=== PATIENT | female | born 1975 | race African-American/Black ===

== ENCOUNTER 2017-10-16 04:59 | Day surgery (SDC) | payer BC, OTHER ==
[2017-10-15 16:33] VITALS: BMI 20.5
[2017-10-16] MEDS ORDERED: PROPOFOL 20 ML ONE ×2 (12:39)
[2017-10-16] MEDS ORDERED: MIDAZOLAM HCL 2 MG/2 ML SINGLE DOSE VIAL ONE (12:39)
[2017-10-16] MEDS ORDERED: ceFAZolin SODIUM 1 GM VIAL ONE (12:44)
[2017-10-16] MEDS ORDERED: IODINE/POTASSIUM IODIDE 5%/10% 14 ML BOTTLE NR ONE (13:05)
[2017-10-16] MEDS ORDERED: KETOROLAC TROMETHAMINE 30 MG/1 ML VIAL IVPUSH ONE (13:38)
[2017-10-16] MEDS ORDERED: ONDANSETRON 4 MG/2 ML VIAL IVPUSH PRN (13:38)
[2017-10-16] MEDS ORDERED: oxyCODONE HCL 5 MG TABLET PO PRN (13:38)
[2017-10-16] MEDS ORDERED: IBUPROFEN 400 MG TABLET (FP) PO PRN (13:38)
[2017-10-16] MEDS ORDERED: LACTATED RINGERS SOLUTION 1,000 ML IV SCH (13:45)
[2017-10-16] MEDS ORDERED: KETOROLAC TROMETHAMINE 30 MG/1 ML VIAL ONE (13:55)
[2017-10-16 15:12] VITALS: TEMP 98.1
[2017-10-16 15:15] VITALS: BP 107/66; PULSE 68
--- NOTE | 2017-10-16 16:19 | OP ---
DATE OF OPERATION: 10/16/2017 PREOPERATIVE DIAGNOSIS: Severe dysplasia high-grade squamous intraepithelial lesion, for severe dysplasia. POSTOPERATIVE DIAGNOSIS: Severe dysplasia high-grade squamous intraepithelial lesion, for severe dysplasia. OPERATION: LEEP cone biopsy. SURGEON: Hieu Chopra M.D. ANESTHESIA: General. DESCRIPTION OF PROCEDURE: While patient was prepped and draped under general anesthesia, and later the speculum applied, and cervix was visualized, and with the Lugol's all the area of the lesion identified. The Schiller test was done with the help of Lugol's, then immediately with the cauterization of the frequency of 35, conization was done, and then some endocervical curetting was done. All the specimens sent to pathology. Bleeding was secured with coagulation, and with the help of the Monsel's and coagulation. Estimated blood loss was 10 mL. Patient tolerated the procedure, was sent to recovery room in good condition. Nona [id number]
--- NOTE | 2017-10-20 16:17 | PATH ---
Surgical Pathology Report Patient Name: MICHEAL KRAUS [facility]. Rec. #: [id number] /Age/Gender: 1975 (Age: 41) / F Account: [id number] Location: [facility] SUR[facility]ICAL Taken: 10/16/2017 Received: 10/16/2017 Reported: 10/20/2017 Physicians: Hieu Chopra M.D. Specimen(s) Received A: CONE BIOPSY OF CERVIX B: ENDOCERVICAL CURETTINGS Clinical History High grade cervical dysplasia Final Diagnosis A. CERVIX, CONE BIOPSY: FRAGMENTS OF BENIGN ENDOCERVICAL MUCOSA. NO ECTOCERVICAL SQUAMOUS MUCOSA, TRANSFORMATION ZONE, OR DYSPLASIA IDENTIFIED. B. ENDOCERVICAL CURETTINGS, DILATATION AND CURETTAGE: FRAGMENTS OF DYSPLASTIC SQUAMOUS EPITHELIUM WITH HIGH GRADE DYSPLASIA (ATLEAST CELESTINO 2), SEE COMMENT. FRAGMENTS OF BENIGN ENDOCERVICAL TISSUE. Comment: The fragments are unoriented and detached, limiting the grading of dysplasia. Immunohistochemical stains performed at [place], [place] ([id number]) and interpreted at [facility] show p16 is positive. Proliferative marker, ki-67, was utilized to evaluate this case. Electronically Signed Love Travis M.D. Gross Description A. Received in formalin labeled "cone biopsy of cervix," is a 1.2 x 0.8 x 0.2 cm irregular, unoriented portion of soft tissue, possibly consistent with a portion of cervix. There is no cervical os identified. The specimen is inked blue, serially sectioned and entirely submitted in 2 cassettes. B. Received in formalin labeled "endocervical curetting," is a 2.3 x 1.6 x 0.2 cm aggregate of bloom-red soft tissue fragments admixed with mucus. The formalin is filtered and the specimen is entirely submitted in one cassette. 10/16/201710/16/2017
== END 2017-10-16 15:20 | disposition home or self-care (01) ==
LOC: JASU-SURG 04:59
PROVIDERS: ATTEND Obstetrics & Gynecology
PROC: 0UBC7ZX Excision of Cervix, Via Natural or Artificial Opening, Diagnostic (ICD-10-PCS; principal; 2017-10-16 12:00)
DX: N87.1 Moderate cervical dysplasia (principal)
CPT/HCPCS: 36415; 84703; 86850; 86900; 86901; 88305-TC; 88307-TC; 94760